=== PATIENT | male | born 1985 | race Caucasian/White ===

== ENCOUNTER 2017-05-10 14:16 | Emergency (ER) | payer MEDICAID ==
[~2017-05-10] VITALS: Ht 6038.7 cm; Wt 115.0 kg
[~2017-05-10 14:16] MED LIST: ALB0.5UD IH; AZIT250T PO; CLON-528 PO; CYCL-394 PO; IBUP-1984 PO; ONDA8TAB6 PO; PRED20TA PO; PROP10TA10 PO; RANI150T12 PO
[2017-05-10 18:02] VITALS: BP 130/78
== END 2017-05-10 18:04 | disposition home or self-care (01) ==
LOC: ER 14:16
DX: S60.221A Contusion of right hand, initial encounter (principal); J44.9 Chronic obstructive pulmonary disease, unspecified; V29.9XXA Motorcycle rider (driver) (passenger) injured in unspecified traffic accident, initial encounter; Y93.89 Activity, other specified; Y92.89 Other specified places as the place of occurrence of the external cause; Y99.8 Other external cause status
CPT/HCPCS: 73110; 73130; 99284

== ENCOUNTER 2021-04-17 10:32 | Emergency (ER) | payer MEDICAID ==
[~2021-04-17] VITALS: Ht 182.9 cm; Wt 95.5 kg
[~2021-04-17 10:32] MED LIST changes: +IBUP-1985 PO; +METH-360 PO; +RANI-648 PO; -RANI150T12 PO
[2021-04-17 10:38] VITALS: BP 121/79
[2021-04-17] MEDS: proparacaine 0.5% ophthalmic drops 15ml RIGHTEYE ONE (14:05)
[2021-04-17] MEDS ORDERED: CIPR2.5D21 EACHEYE (15:19)
== END 2021-04-17 15:28 | disposition home or self-care (01) ==
LOC: ER 10:32
DX: S05.01XA Injury of conjunctiva and corneal abrasion without foreign body, right eye, initial encounter (principal); H57.11 Ocular pain, right eye; J44.9 Chronic obstructive pulmonary disease, unspecified; F41.9 Anxiety disorder, unspecified; Z87.440 Personal history of urinary (tract) infections; Z72.89 Other problems related to lifestyle; Z60.2 Problems related to living alone; Z88.1 Allergy status to other antibiotic agents; Z88.8 Allergy status to other drugs, medicaments and biological substances; Z79.2 Long term (current) use of antibiotics; Z79.899 Other long term (current) drug therapy; X58.XXXA Exposure to other specified factors, initial encounter; Y93.89 Activity, other specified; Y92.89 Other specified places as the place of occurrence of the external cause; Y99.8 Other external cause status
CPT/HCPCS: 99283